=== PATIENT | female | born 2005 | race Caucasian/White ===

== ENCOUNTER 2024-05-19 12:02 | Emergency (ER) | payer MEDICAID, SELFPAY ==
--- NOTE | 2024-05-19 12:45 | XR_ITS ---
Examination: CT abdomen and pelvis without contrast. Coronal 3-D reconstructions. Sagittal 2-D reconstructions. Date and time of exam:May 19, 2024 1605 hrs. Indications: Onset left lower abdominal pain nausea vomiting beginning 2 days ago Comparison: 01/27/2019 CTDI: vol (mGy): 5.38 DLP: (mGycm): 302 Technique: Axial images of the abdomen have been obtained, 3 mm slice thickness Intravenous contrast material has not been administered. Low dose protocols were performed. One or more of the following dose reduction techniques were used; automated exposure control, adjustment of the mA and/or KV according to patient size, use of iterative reconstruction technique. Findings: No focal liver or splenic lesion No gallstones No pancreatic or adrenal mass No renal or ureteral calculi, no hydronephrosis No bowel obstruction Normal appendix No diverticulitis Anteverted uterus Abnormal complex fluid in the pelvis versus adnexal cystic masses surrounding the uterus Urinary bladder intact Osseous structures intact Impression: Abnormal complex fluid in the pelvis versus adnexal cystic masses surrounding the uterus, recommend transvaginal transabdominal pelvic sonography follow-up
--- NOTE | 2024-05-19 12:45 | PD.EDRME ---
Rapid Medical Screening Exam RME Arrival date/time: 05/19/24 12:02 18-year-old female with no known medical history presents to the emergency room with a chief complaint of 10 out of 10 lower abdominal pain and tenderness x 2 days that is progressively gotten worse since last night. I have greeted and performed a focused initial assessment of this patient. A comprehensive ED assessment and evaluation of the patient, analysis of all test results, and completion of the medical decision making process will be conducted by additional ED providers. Chief Complaint: Abdominal Pain
[2024-05-19 12:46] VITALS: BP 121/79; PULSE 91; RESP 19; TEMP 36.7; O2SAT 98; BMI 22.4
[2024-05-19 13:09] LABS: Collection Type, Urine Clean Catch
[2024-05-19 13:11] LABS: Basophils # (Auto) 0.1 Thou/mm3 (0.0-0.2); Basophils % (Auto) 0 % (0-2.5); Eosinophils # (Auto) 0.3 Thou/mm3 (0.0-0.5); Eosinophils % (Auto) 3 % (0-10); Hematocrit 39.6 % (36.0-46.0); Hemoglobin 13.1 g/dL (12.0-16.0); Immature Granulocytes % (Auto) 0 % (0-0); Immature Granulocytes Auto 0.03 Thou/mm3 (0.00-0.00); Lymphocytes # (Auto) 2.7 Thou/mm3 (1.0-5.0); Lymphocytes % (Auto) 24 % (10-50); Mean Corpuscular HGB Conc 33.1 g/dl (31.0-37.0); Mean Corpuscular Hemoglobin 29.6 pg (25.0-35.0); Mean Corpuscular Volume 90 fL (80-100); Monocytes # (Auto) 0.6 Thou/mm3 (0.0-0.8); Monocytes % (Auto) 6 % (0-12); Neutrophils # (Auto) 7.5 Thou/mm3 (1.8-7.7); Neutrophils % (Auto) 67 % (37-80); Nucleated Red Blood Cell % 0 /100 WBC (0); Platelet Count 253 Thou/mm3 (140-440); RDW Standard Deviation 40.7 fL (36.4-46.3); Red Blood Count 4.42 Miln/mm3 (4.00-5.20); White Blood Count 11.3 Thou/mm3 (4.5-11.0)
[2024-05-19 13:15] LABS: Bilirubin,Urine Negative (Negative); Blood,Urine Negative (Negative); Clarity,Urine Clear (Clear/Hazy); Color,Urine Lt-Yellow (Lt Yel-Yel); Glucose, Urine Negative (Negative); Ketones,Urine Negative (Negative); Leukocyte Esterase,Urine Negative (Negative); Nitrite,Urine Negative (Negative); PH,Urine 6.5 (5.0-7.0); Protein,Urine Trace (Neg - Trace); RBC,Urine 2 /hpf (0-3); Specific Gravity,Urine 1.025 (1.001-1.035); Squamous Epithelial Cell,Urine 2 /hpf (0-5); Urobilinogen,Urine Negative mg/dL (0.0-1.0); WBC,Urine 3 /hpf (0-5)
[2024-05-19 13:23] LABS: HCG Qualitative,Urine Negative
[2024-05-19 13:43] LABS: Alanine Aminotransferase 9 U/L (10-49); Albumin, Serum 5.1 gm/dL (3.5-5.0); Albumin/Globulin Ratio 2.2 (1.2-2.2); Alkaline Phosphatase 86 U/L (46-116); Anion Gap 10 (7-16); Aspartate Amino Transferase 13 U/L (0-34); BUN/Creatinine Ratio 13 Ratio (12-20); Bilirubin,Total 0.8 mg/dL (0.3-1.2); Blood Urea Nitrogen 9 mg/dL (9-23); Calcium 9.7 mg/dL (8.3-10.6); Calcium (Corrected) 9.7 mg/dL (8.5-10.1); Chloride 106 mMol/L (98-107); Creatinine (Component) 0.7 mg/dL (0.6-1.3); Estimated Creatinine Clearance 97.5 mL/min (>60); Globulin 2.3 gm/dL (2.3-3.5); Glucose 101 mg/dL (74-106); Lipase 29 U/L (12-53); Osmolality,Calculated 278 (275-295); Potassium 3.4 mMol/L (3.4-5.1); Sodium 140 mMol/L (136-145); Total Protein 7.4 gm/dL (5.7-8.2); eGFR > 60 See Note
[2024-05-19 16:55] VITALS: BP 120/65; PULSE 82; RESP 19; TEMP 36.8; O2SAT 99
--- NOTE | 2024-05-19 18:06 | EDNOTE_ITS ---
ED General RME/HPI General Chief complaint: Abdominal Pain Stated complaint: ABDOMINAL PAIN Time Seen by Provider: 05/19/24 17:57 Arrival date/time: 05/19/24 12:02 CC: Low left abdominal pain that started postcoital severe with nausea and vomiting and then eased up 24 hours ago postcoital the pain was extreme now the pain is in the left lower quadrant rating to the right lower quadrant. The patient denies any nausea vomiting currently. Patient is awake alert oriented nontoxic-appearing but in mild discomfort. RME / HPI RME / HPI narrative: 05/19/24 12:02 18-year-old female with no known medical history presents to the emergency room with a chief complaint of 10 out of 10 lower abdominal pain and tenderness x 2 days that is progressively gotten worse since last night. I have greeted and performed a focused initial assessment of this patient. A comprehensive ED assessment and evaluation of the patient, analysis of all test results, and completion of the medical decision making process will be conducted by additional ED providers. Related Data Home Medications ?Medication ?Instructions ?Recorded ?Confirmed fluoxetine 40 mg capsule (Prozac) 40 mg PO QAM 05/07/21 05/07/21 olanzapine 2.5 mg tablet (Zyprexa) 2.5 mg PO QDAY 05/07/21 05/07/21 Previous Rx's ?Medication ?Instructions ?Recorded ibuprofen 400 mg tablet 400 mg PO TID PRN pain #30 tabs 05/07/21 acetaminophen 650 mg 650 mg PO Q8H PRN fever or pain 03/02/23 tablet,extended release (Tylenol 8 #30 tabs Hour) dextromethorphan-guaifenesin 5 10 ml PO Q8H PRN cough #180 mL 03/02/23 mg-100 mg/5 mL oral liquid ibuprofen 600 mg tablet 600 mg PO Q8H PRN fever or pain 03/02/23 #30 tabs ipratropium bromide 21 mcg (0.03 2 spray intranasal TID PRN nasal 03/02/23 %) nasal spray congestion #30 mL doxycycline hyclate 100 mg capsule 100 mg PO BID #20 caps 05/19/24 Allergies Allergy/AdvReac Type Severity Reaction Status Date / Time No Known Allergies Allergy Verified 05/19/24 12:07 Review of Systems Review of Systems Narrative Review of Systems: GEN: No fever, no chills, no weight loss EYES: No discharge, no visual changes, no pain HEENT: No ear pain, no congestion, no sore throat PULM: No shortness of breath, no cough, no congestion CV: No chest pain, no dyspnea on exertion, no palpitations GI: No nausea, no vomiting, no diarrhea, + pain, no constipation : No frequency, no urgency, no dysuria MUSC/SKEL: No joint pain, no back pain SKIN: No rash PSYCH: No hallucinations, no depression HEME/LYMPH: No easy bleeding or bruising tendencies NEURO: No weakness, no headache Past Medical History Past Medical History CARDIAC: Negative Cardiac Disorders or Congestive Heart Failure RESPIRATORY: Negative Chronic Obstructive Pulmonary Disease (COPD) or Asthma GENITOURINARY: Negative Renal Disease MUSCULOSKELETAL: Positive Scoliosis ENDOCRINE: Negative Diabetes Mellitus Type 1 or Diabetes Mellitus Type 2 HEMATOLOGIC: Negative Sickle Cell Disease Social History SMOKING STATUS: Current every day smoker SUBSTANCE USE: does not use ED Exam Narrative Physical exam: [General: Mild discomfort but not in any acute distress Head normocephalic HEENT: Within acceptable limits Neck is supple nontender Chest equal chest rise nontender to palpation Respiratory: Clear to auscultation no wheezes crackles or rubs CV: Rate rhythm is regular no murmurs rubs or clicks Abdomen is distended secondary to body habitus soft. Mild left lower quadrant tenderness with palpation. No reflexive guarding no rebound tenderness. All of the quadrants of the abdomen unremarkable. Back: No CVA tenderness no spinous process tenderness from cervical spine thoracic and lumbar spine Skin: Intact no petechiae rash induration ulceration or crepitus Extremities: Moving all extremity against resistance cap refill less than 2 seconds neurosensory intact Neuro: Awake alert oriented x3 Glascow coma 15 no focal deficits] Course Quality Measures none Orders Category Date Time Status CT abdomen pelvis wo con Stat Exams 05/19/24 12:45 Completed US transvaginal Stat Exams 05/19/24 18:06 Completed CBC Stat Lab 05/19/24 12:56 Completed CMP [Comprehensive Metabolic Panel] Stat Lab 05/19/24 12:56 Completed HCG Qualitative,Urine Stat Lab 05/19/24 13:00 Completed Lipase Stat Lab 05/19/24 12:56 Completed UA [Urinalysis] Stat Lab 05/19/24 13:00 Completed Urine Culture Stat Lab 05/19/24 13:00 Completed Ibuprofen Tab [Motrin Tab] Med 05/19/24 18:05 Discontinued 400 mg PO X1 ONE cefTRIAXone [Rocephin] 500 mg Med 05/19/24 20:05 Discontinued Lidocaine 1% 20 ml [Xylocaine 1% 20 ML] 1 ml IM X1 Vital Signs Vital signs: Vital Signs Temperature 98.1 F 05/19/24 12:46 Pulse Rate 91 05/19/24 12:46 Respiratory Rate 19 05/19/24 12:46 Blood Pressure 121/79 05/19/24 12:46 Pulse Oximetry (%) 98 05/19/24 12:46 Oxygen Delivery Method Room Air 05/19/24 12:46 MDM Patient data External records reviewed:: [facility] previous records Clinical information provided by:: patient Social determinants that could affect healthcare access:: none Patient has the following chronic illnesses:: None How is presenting disease/condition affected by chronic disease/condition?: u neffected by Evaluation data The following diagnostics were reviewed and interpreted by me:: lab results and radiology exam(s) Lab and/or radiology exams considered but not ordered:: CT of the abdomen shows a complex cyst with free fluid in the pelvic floor no other acute finding this is interpreted by me read by radiology CBC shows a mild leukocytosis no anemia thrombocytopenia CMP shows no acute electrolyte imbalances renal impairment transaminitis or T. bili elevation. Urine is negative for UTI test is negative Interpretation Summary: Viral syndrome Medications Medications considered but not ordered:: None Medication administrations:: Medication Administration History Discontinued Medications Ceftriaxone Sodium 500 mg/ (Lidocaine HCl 1 ml) 0 mg IM X1 ONE Stop: 05/19/24 20:06 Last Admin: 05/19/24 20:21 Dose: 1 mg Documented By: OA Ibuprofen (Ibuprofen Tab 400 Mg Tablet) 400 mg PO X1 ONE Stop: 05/19/24 18:06 Last Admin: 05/19/24 18:08 Dose: 400 mg Documented By: DB None Consultations Consultation(s) initiated? (list below): No Diagnosis Differential Diagnosis ED Complaint MDM: Viral syndrome UTI pneumonia Most likely diagnosis given after review of the tests above:: Viral syndrome Admission Indicated Admission indicated?: not indicated Explain why admission is indicated or not indicated:: Stable for discharge Admission Request Was there a request for admission?: No Disposition Plan Disposition Plan: Discharge Discharge Attestation Discharge Attestation: The patient and all family members were given an opportunity to ask questions and understood the discharge instructions. Discharge instructions specifically effects, indications for sooner follow up or return to the emergency department, and the expected course of current diagnosis. Patient condition: Stable Medical Decision Making Differential Diagnosis Differential Diagnosis: Viral syndrome UTI pneumonia Lab Data 05/19/24 12:56 05/19/24 12:56 Labs: Lab Results 05/19/24 05/19/24 Range/Units 12:56 13:00 WBC 11.3 H (4.5-11.0) Thou/mm3 RBC 4.42 (4.00-5.20) Miln/mm3 Hgb 13.1 (12.0-16.0) g/dL Hct 39.6 (36.0-46.0) % MCV 90 (80-100) fL MCH 29.6 (25.0-35.0) pg MCHC 33.1 (31.0-37.0) g/dl RDW Std Deviation 40.7 (36.4-46.3) fL Plt Count 253 (140-440) Thou/mm3 Neut % (Auto) 67 (37-80) % Lymph % (Auto) 24 (10-50) % Mitchell % (Auto) 6 (0-12) % Eos % (Auto) 3 (0-10) % Baso % (Auto) 0 (0-2.5) % Neut # (Auto) 7.5 (1.8-7.7) Thou/mm3 Lymph # (Auto) 2.7 (1.0-5.0) Thou/mm3 Mitchell # (Auto) 0.6 (0.0-0.8) Thou/mm3 Eos # (Auto) 0.3 (0.0-0.5) Thou/mm3 Baso # (Auto) 0.1 (0.0-0.2) Thou/mm3 Immature Gran # (Auto) 0.03 H (0.00-0.00) Thou/mm3 Absolute Nucleated RBC 0.00 (0.00-0.00) Thou/mm3 Immature Gran % 0 (0-0) % Nucleated RBC % 0 (0) /100 WBC Sodium 140 (136-145) mMol/L Potassium 3.4 (3.4-5.1) mMol/L Chloride 106 (98-107) mMol/L Carbon Dioxide 24.0 (20.0-31.0) mMol/L Anion Gap 10 (7-16) BUN 9 (9-23) mg/dL Creatinine 0.7 (0.6-1.3) mg/dL Estim Creat Clear Calc 97.5 (>60) mL/min eGFR > 60 (60 - ) See Note BUN/Creatinine Ratio 13 (12-20) Ratio Glucose 101 (74-106) mg/dL Calculated Osmolality 278 (275-295) Calcium 9.7 (8.3-10.6) mg/dL Corrected Calcium 9.7 (8.5-10.1) mg/dL Total Bilirubin 0.8 (0.3-1.2) mg/dL AST 13 (0-34) U/L ALT 9 L (10-49) U/L Alkaline Phosphatase 86 (46-116) U/L Total Protein 7.4 (5.7-8.2) gm/dL Albumin 5.1 H (3.5-5.0) gm/dL Globulin 2.3 (2.3-3.5) gm/dL Albumin/Globulin Ratio 2.2 (1.2-2.2) Lipase 29 (12-53) U/L Ur Collection Type Clean Catch Urine Color Lt-Yellow (Lt Yel-Yel) Urine Clarity Clear (Clear/Hazy) Urine pH 6.5 (5.0-7.0) Ur Specific [place] 1.025 (1.001-1.035) Urine Protein Trace (Neg - Trace) Urine Glucose (UA) Negative (Negative) Urine Ketones Negative (Negative) Urine Blood Negative (Negative) Urine Nitrite Negative (Negative) Urine Bilirubin Negative (Negative) Urine Urobilinogen (Auto) Negative (0.0-1.0) mg/dL Ur Leukocyte Esterase Negative (Negative) Urine RBC 2 (0-3) /hpf Urine WBC 3 (0-5) /hpf Ur Squamous Epith Cells 2 (0-5) /hpf Urine Bacteria None (None) Urine HCG, Qual Negative Discharge Plan Plan Patient Disposition: HOME (Self Care) Prescriptions/Referrals Prescriptions/Med Rec: New doxycycline hyclate 100 mg capsule 100 mg PO BID Qty: 20 0RF No Action fluoxetine [Prozac] 40 mg Capsule 40 mg PO QAM olanzapine [Zyprexa] 2.5 mg Tablet 2.5 mg PO QDAY ibuprofen 400 mg tablet 400 mg PO TID PRN (Reason: pain) Qty: 30 0RF dextromethorphan-guaifenesin 5-100 mg/5 mL liquid 10 ml PO Q8H PRN (Reason: cough) Qty: 180 0RF ipratropium bromide 21 mcg (0.03 %) spray,non-aerosol 2 spray intranasal TID PRN (Reason: nasal congestion) Qty: 30 0RF Rx Instructions: 2 sprays each nostril up to 3 times a day prn nasal congestion ibuprofen 600 mg tablet 600 mg PO Q8H PRN (Reason: fever or pain) Qty: 30 0RF acetaminophen [Tylenol 8 Hour] 650 mg tablet extended release 650 mg PO Q8H PRN (Reason: fever or pain) Qty: 30 0RF Referrals: Oh Myers MD [Primary Care Provider] - In 1 week Problem List Clinical Impression: Acute pelvic inflammatory disease (PID) Patient/Caregiver Discharge Instructions Education Materials: ED Pelvic Inflammatory Disease Additional Instructions: Follow-up with your primary care provider take the medications until completed. Follow-up promptly your primary care provider if there is no improvement in the next 3 to 4 days return the emergency room for reevaluation. Avoid all sexual activity for the next 2 to 3 weeks. Print Language: Serbian Stand Alone Forms: Velvet Award Info., Work/School Release, Patient Portal Info Letter LILA/BRIANNA Supervising Physician MICKI Supervising Physician: Ata Alfonso ENP
--- NOTE | 2024-05-19 18:06 | XR_ITS ---
Examination: Transvaginal ultrasound of the pelvis, complete Technique: Transvaginal sonographic images pelvis performed using soni scale imaging Exam date and time: May 19, 2024 1854 hrs. Indications: Pelvic pain beginning 2 days ago, CT examination today complex fluid versus adnexal cystic masses Findings: Uterus 6.1 x 3.2 x 4.2 cm No uterine mass or intrauterine gestation Fluid surrounds the uterus Right ovary 3.6 x 3.0 x 2.4 cm arterial flow 22 mm cyst, complex fluid in the right adnexal region Left ovary 5.1 x 2.8 x 4.6 cm arterial flow, 24 mm cyst Free fluid in the left ovary Impression: No uterine mass or intrauterine gestation Bilateral ovarian cysts Abundant fluid surrounds the uterus and is present in the adnexal regions, differential would include pelvic inflammatory disease, clinical correlation advised, follow-up imaging suggested
[2024-05-19] MEDS: IBUPROFEN TAB 400 MG TABLET PO (18:08)
[2024-05-19] MEDS: cefTRIAXone 500 MG, LIDOCAINE 1% 20 ML 1 ML IM (20:21)
[2024-05-19 20:29] VITALS: BP 125/82; PULSE 77; RESP 19; TEMP 36.7; O2SAT 99
== END 2024-05-19 20:31 | disposition home or self-care (01) ==
PROVIDERS: Nurse Practitioner Family; Emergency Provider Emergency Medicine; PCP Family Medicine
DX: N73.9 Female pelvic inflammatory disease, unspecified (principal)
CPT/HCPCS: 36415; 74176; 76830; 80053; 81001; 81025; 83690; 85025; 87086; 96372; 99284; J0696; J3490; A9270